=== PATIENT | male | born 2000 | race Two or more races ===

== ENCOUNTER 2023-06-09 09:45 | Day surgery (SDC) | payer BC ==
[2023-06-08 11:38] VITALS: BMI 27.9
[2023-06-09] MEDS ORDERED: Oxymetazoline HCl 0.05% (30 ML BOT) ONE ×2 (10:50→11:41)
[2023-06-09] MEDS ORDERED: Ferric Subsulfate (ASTRINGYN) 8 GM VIAL ONE (10:50)
[2023-06-09] MEDS ORDERED: EPINEPHrine 1 MG/ML AMP ONE (10:50)
[2023-06-09] MEDS ORDERED: Lidocaine 1% (PF) 30 ML VIAL ONE (10:50)
[2023-06-09] MEDS ORDERED: fentaNYL PF 100 MCG/2 ML SYRINGE ONE (10:53)
[2023-06-09] MEDS ORDERED: Ondansetron PF 4 MG/2 ML Vial ONE (11:01)
[2023-06-09] MEDS ORDERED: Lidocaine 1% PF 5 ML VIAL ONE (11:01)
[2023-06-09] MEDS ORDERED: Dexamethasone 20 MG/5 ML VIAL ONE (11:01)
[2023-06-09] MEDS ORDERED: PROPOFOL 200 MG/20 ML VIAL ONE (11:01)
[2023-06-09] MEDS ORDERED: ePHEDrine Sulfate 50 MG/10 ML VIAL ONE (11:01)
[2023-06-09] MEDS ORDERED: Hydrocodone-Acetamin 15 ML UDCUP ONE (13:40)
== END 2023-06-09 14:27 | disposition home or self-care (01) ==
LOC: SDC 09:45
PROVIDERS: ATTEND Student in an Organized Health Care Education/Training Program
PROC: 0CBQ0ZZ Excision of Adenoids, Open Approach (ICD-10-PCS; principal; 2023-06-09)
PROC: 0CJS8ZZ Inspection of Larynx, Via Natural or Artificial Opening Endoscopic (ICD-10-PCS; 2023-06-09)
DX: J35.3 Hypertrophy of tonsils with hypertrophy of adenoids (principal); J39.2 Other diseases of pharynx; R09.81 Nasal congestion; Z88.2 Allergy status to sulfonamides; Z87.891 Personal history of nicotine dependence
CPT/HCPCS: 87070; 87077; 87116; 87186; 87205; 87206; 88304; J0171; J1100; J2001; J2405; J2704